=== PATIENT | female | born 1985 | race Caucasian/White ===

== ENCOUNTER 2025-03-13 09:59 | Outpatient (CLI) | payer BC, SELFPAY | END 2025-03-13 10:00 | disposition home or self-care (01) | PROVIDERS: Visit Provider Registered Nurse | DX: O09.522 Supervision of elderly multigravida, second trimester (principal); E06.3 Autoimmune thyroiditis; Z3A.23 23 weeks gestation of pregnancy | CPT/HCPCS: 84443; 86762; 86787 ==

== ENCOUNTER 2025-04-27 10:05 | Outpatient (CLI) | payer OTHER, BC, SELFPAY | END 2025-04-27 10:06 | disposition home or self-care (01) | PROVIDERS: Visit Provider Obstetrics & Gynecology | DX: Z67.91 Unspecified blood type, Rh negative (principal); O26.893 Other specified pregnancy related conditions, third trimester; E03.9 Hypothyroidism, unspecified | CPT/HCPCS: 84443; 86592; 86850; 86900; 86901; J2791 ==

== ENCOUNTER 2025-05-03 08:17 | Outpatient (CLI) | payer OTHER, BC, SELFPAY | END 2025-05-03 08:18 | disposition home or self-care (01) | LOC: NFLDREF 23:36 | PROVIDERS: Visit Provider Obstetrics & Gynecology | DX: R89.9 Unspecified abnormal finding in specimens from other organs, systems and tissues (principal); Z34.93 Encounter for supervision of normal pregnancy, unspecified, third trimester | CPT/HCPCS: 82951; 82952 ==

== ENCOUNTER 2025-06-04 11:14 | Outpatient (CLI) | payer OTHER, BC, SELFPAY ==
--- NOTE | 2025-06-04 11:30 | CRLHL7_ITS ---
For Patients: As a result of the Cures Act, medical imaging exams and procedure reports are released immediately into your electronic medical record. You may view this report before your referring provider. If you have questions, please contact your health care provider. OB ULTRASOUND FOLLOW-UP CLINICAL HISTORY: Macrosomia TECHNIQUE: Real time gaviria scale imaging of the fetus was performed. Transabdominal imaging performed. COMPARISON: 02/21/2025, 12/14/2024. FINDINGS: DAVINA by US: 07/19/2025. GA: 33 weeks 4 days. Gestation: Single. Cervix: Not visualized. Positioning: Vertex. Amniotic Fluid: 20.1 cm HENNA. 8.4 cm SDP. Placenta: Technique: TA. Placenta Position: Posterior. Dopplers: Heart Rate: 129 bpm. BIOMETRY BPD: 8.9 cm, 36 weeks 0 days. 6.0% HC: 32.4 cm, 36 weeks 5 days. 87.7% AC: 31.0 cm, 34 weeks 6 days. 86.1% FL: 6.7 cm, 34 weeks 2 days. 57.5% FL/AC Ratio: 21.48% HC/AC Ratio: 1.05. EFW: 2572 grams, 5 lb 11 oz. Age by this US: 35 weeks 3 days. DAVINA by this US: 07/06/2025. Percentile by DAVINA: 83.8% IMPRESSION: 1. Sonographic gestational age 35 weeks 3 days and sonographic due date 07/06/2025. Sonographic age is 13 days ahead of the clinical age. 2. Estimated weight 84th percentile. Abdominal circumference 86th percentile. 3. Amniotic fluid single deepest pocket 8.4 cm. HENNA 20.1 cm. Indra Veronica M.D. Diagnostic Radiologist [email or web address] Transcribed: 2:27 am DW/Dictated by: Indra Veronica MD @ 06/04/2025 12:29:00 PM (Electronically Signed)
== END 2025-06-04 11:15 | disposition home or self-care (01) ==
LOC: US 11:15
PROVIDERS: Visit Provider Obstetrics & Gynecology
DX: O36.63X0 Maternal care for excessive fetal growth, third trimester, not applicable or unspecified (principal); Z3A.33 33 weeks gestation of pregnancy
CPT/HCPCS: 76816

== ENCOUNTER 2025-06-27 10:06 | Outpatient (CLI) | payer OTHER, BC, SELFPAY | END 2025-06-27 10:07 | disposition home or self-care (01) | PROVIDERS: Visit Provider Obstetrics & Gynecology | DX: Z87.59 Personal history of other complications of pregnancy, childbirth and the puerperium (principal); Z34.93 Encounter for supervision of normal pregnancy, unspecified, third trimester | CPT/HCPCS: 82565; 82570; 84156; 84450; 84460; 84520; 87081; 87653 ==

== ENCOUNTER 2025-06-28 12:35 | Inpatient (IN) | payer OTHER, BC, SELFPAY ==
[2025-06-28] VITALS (23 sets, daily range): BP systolic 121–158; BP diastolic 74–115; PULSE 82–113; RESP 16–22; TEMP 36.7; O2SAT 98–99; BMI 35.2
[2025-06-28 11:26] LABS: Hematocrit* 36.5 % (33.0-51.0); Hemoglobin* 12.4 gm/dL (12.0-16.0); Mean Corpuscular HGB Conc 34 gm/dL (32-36); Mean Corpuscular Hemoglobin 31 pg (26-34); Mean Corpuscular Volume 90 fL (80-100); Red Blood Count* 4.04 m/uL (4.00-5.20); White Blood Count* 8.45 K/uL (4.50-11.00)
[2025-06-28 11:30] LABS: Slide Review Reflex No
[2025-06-28 11:40] LABS: Alanine Aminotransferase* 14 U/L (4-35); Aspartate Amino Transferase* 25 U/L (12-35); Blood Urea Nitrogen* 8 mg/dL (5-24); Creatinine* 0.9 mg/dL (0.5-1.5); Estimated Glomerular Filt Rate 84 ml/min
[2025-06-28 11:48] LABS: Protein Creatinine Ratio Urine 0.44 (0-0.19)
[2025-06-28 16:14] LABS: Hematocrit* 36.9 % (33.0-51.0); Hemoglobin* 12.5 gm/dL (12.0-16.0); Immature Granulocytes Abs Auto 0.17 K/uL (0.00-0.30); Immature Granulocytes Pct Auto 1.6 %; Mean Corpuscular HGB Conc 34 gm/dL (32-36); Mean Corpuscular Hemoglobin 31 pg (26-34); Mean Corpuscular Volume 90 fL (80-100); RDW Coefficient of Variation % 13.3 % (11.5-15.5); Red Blood Count* 4.08 m/uL (4.00-5.20); White Blood Count* 10.57 K/uL (4.50-11.00)
[2025-06-28 16:18] LABS: Lymphocytes Absolute Auto 1.80 K/uL (0.90-2.90); Slide Review Reflex No
[2025-06-28] MEDS: LACTATED RINGERS 1000 ML 1,000 ML 1200 ML IV (16:52)
--- NOTE | 2025-06-28 17:29 | P.LDBA_ITS ---
Subjective History of Present Illness Narrative: Patient is being admitted to Labor and Delivery for elevated blood pressure in clinic. She was sent to the center for BP monitoring. She is a 39 year old at 37.0 weeks gestation. Her full history and physical was dictated by myself on 06/28/25. Please see this for details. Patient ruled in for preeclampsia without severe features based on mild ranging blood pressures 4 hours apart with protein creatinine ratio 0.44. Recommend delivery at 37 weeks given diagnosis. Active movement. Denies LOF, vaginal bleeding or abnormal vaginal discharge. Having more frequent contractions but tolerable. Specific Issues/Plans G 2 P 1001 spouse Sohan #History of due to arrest of dilation (2 hrs pushing, no descent - 9lb 2oz baby) and gestational hypertension. - success score 46% - TOLAC packet reviewed on 03/27 - Plans for repeat without sterilization. - Likely last baby, counseled on option for sterilization # Elevated 1 hour glucola - 147mg/dL 3 hr GTT with 1 of 4 values elevated = no GDM #Advanced maternal age NIPT: Declined FAS results below #Rh negative RhoGAM 04/27/25 #Gustavo's thyroiditis. Levothyroxine 88mcg - and 176mcg Wednesday and Wednesday. Changed to 125 mcg / day on 05/22, as that is the average daily amount of the dosing above. TSH: 12/14: 1.7 TSH 03/13: 0.842 TSH 04/27: 1.930 #History of gestational hypertension during 1st . Baseline labs completed Daily low-dose aspirin #History of macrosomia. 9lb 2oz at 38 weeks. Growth ultrasound in 3rd trimester #Asthma. Not using inhaler. #Depression and anxiety. Stable without medication. #Father of baby's sister with cerebral palsy Per previous OB records: LMP 10/02/2024, exact date. DAVINA based on LMP and early ultrasound did not correlate. DAVINA 07/19/2025, which is based on early ultrasound. Labs: 03/08/2023: Blood type O negative 12/14/2024: Antibody screen negative, hemoglobin 14.7, platelets 311, RPR nonreactive, hepatitis-B antigen negative, hepatitis-B antibody positive, HIV negative, Chlamydia gonorrhea both negative, urine culture with urogenital micro Biota, hepatitis C negative, Pap smear normal, negative HPV, TSH 1.7, hemoglobin A1c 5.0, hemoglobin electrophoresis normal, creatinine 0.71, AST 14, total protein less than 4, P/C less than 0.06 Ultrasounds: Ob 1st trimester ultrasound 12/14/2024: Single intrauterine with dating perform report. Gestational age and DAVINA by LMP or Ob/E HR assignment: 10 weeks 3 days, DAVINA: 07/09/2025. Age in DAVINA by current ultrasound measurements 9 weeks 0 days, DAVINA 07/19/2025. anatomy scan 02/21/2025: Incomplete anatomy survey due to positioning. Follow-up recommended for RVOT, 3VV, 3VTV, will or spine, sacral spine, and cord insertion. Placenta is posterior. No previa. Amniotic fluid subjectively normal in volume. Ob ultrasound follow-up 03/02/2025: Single intrauterine at 20 weeks 1 day. RVOT, 3VV, 3VTV are spine, sacral spine, and cord insertion completed without abnormality detected. 06/04/25: cephalic, HENNA 20.1, SDP 8.4, EFW 83.8%, AC 86.1%, BPD 96%, HC 87.7%, FL 57.5% Covid: declined Flu:declines TDAP: - declines RSV: Mental Health: DOUGIE and PHQ = 3 on 05/22 Hgb: 12.8 at 33 4/7 GBS: H&P: Dr. Nuno on 06/20 OB - Problem Based A/P Additional Plan (1) Hx of macrosomia in infant in prior , currently : Status: Acute (2) Rh negative status during : Status: Acute (3) Advanced maternal age (AMA) in : Status: Acute (4) History of delivery: Status: Acute (5) Gustavo thyroiditis: Status: Acute (6) Asthma: Status: Acute Plan Pre-Eclampsia without SF - Based on mild ranging BP 4 hrs apart and P/C ratio of 0.44 - BPs 120-150s/70-100s - Symptoms: None - Magnesium: currently: Currently not indicated - IV antihypertensives: Currently not indicated - Pre-eclampsia labs on 06/28/25: Hgb 12.5 Plt 218 Cr 0.9 ALT 14 AST 25 Plan: - Reviewed consent form with patient. R/B/A discussed. Patient verbalized understanding and all questions answered to patient's satisfaction. - Will proceed to the the OR for repeat delivery NST: baseline 130 bpm, moderate variability, + acceleration, - decelerations. Reactive and reassuring [place]: irregular OB Exam Physical Exam Vital signs: Temp Pulse Resp BP 98.1 F 97 16 125/90 H 06/28/25 11:00 06/28/25 14:15 06/28/25 11:00 06/28/25 14:15 Narrative: Physical exam: General: No acute distress Psych: Alert and oriented x3, full affect HEENT: Normocephalic, atraumatic Lungs: Unlabored breathing Neuro: No focal deficit. Mentating appropriately Pelvic exam: closed per RN exam
[2025-06-28] MEDS: CEFAZOLIN 2 GM INJ IVP (18:39)
--- NOTE | 2025-06-28 20:32 | P.NB_ITS ---
Nerve Block Nerve Block Time Seen by Provider: 19:48 Date Seen: 06/28/25 Type of block requested by surgeon for post-operative analgesia: TAP Side: bilateral Time out performed: Yes Verification of patient name: Yes Verification of date of : Yes Name of person performing procedure: Antoine Vasu Continuous monitoring Was continuous monitoring of O2 sat, B/P, communications billing analyst, recorded every 15 minutes?: Yes Procedure Checklist: sterile prep, needles and gloves Ultrasound guided. Images saved: Yes Medications given in 5ml increments after negative aspiration: Marcaine %: 0.25 mL: 20 Needle gauge: 20 and Exparel mL: 10 Needle gauge: 20 Patient tolerated procedure well: Yes Block Charges Block Charge (with Pro Fee): TAP Bilateral Use of Ultrasound Machine for Block: Yes- US Guidance/pain block
--- NOTE | 2025-06-28 20:32 | P.ANES_ITS ---
Anesthesia Charges Start Date/Time Anesthesia Start Date: 06/28/25 Anesthesia Start Time: 18:23 Stop Date/Time Anesthesia Stop Date: 06/28/25 Anesthesia Stop Time: 20:05 Coding CPT Codes CPT Codes: ANESTH CS DELIVERY - 15155 ([id number]) P2 - PATIENT W/MILD SYST DISEASE, QZ - AUTOMOTIVE ENGINEERING TECHNICIAN SVC W/O LICENSED MIDWIFE BY
--- NOTE | 2025-06-28 20:32 | W.ANESCHARGE ---
Anesthesia Charges Start Date/Time Anesthesia Start Date: 06/28/25 Anesthesia Start Time: 18:23 Stop Date/Time Anesthesia Stop Date: 06/28/25 Anesthesia Stop Time: 20:05 Coding CPT Codes CPT Codes: ANESTH CS DELIVERY - 69250 ([id number]) P2 - PATIENT W/MILD SYST DISEASE, QZ - CONTROLLED AREA CHECKER SVC W/O SUPERINTENDENT PLANT PROTECTION BY
[2025-06-28] MEDS: LACTATED RINGERS 1000 ML 1,000 ML 125 ML IV (21:30)
--- NOTE | 2025-06-28 22:47 | PM.OBPRCCS ---
Procedure Date of procedure: 06/28/25 Procedure Done: Global Will [facility] bill your pro fee for this procedure?: Yes IV fluids (mL): 700 Urine Output (mL): 100 (Clear) Procedure Description: DELIVERY BY SECTION Date of Service: 06/28/25 Delivery time: 1855 Summary: Admitted for pre-eclampsia at 37.0 weeks, Repeat Lower uterine transverse section, Pfannenstiel, Closed with sutures, QBL 428 cc, No complications, Findings: Normal uterus, bilateral ovaries and tubes. Umbilical cord had true knot 7, 6, 8 Weight 3290 g. Primary Indication: 1. Preeclampsia without severe features at 37.0 weeks 2. History of delivery x1 3. Declined TOLAC Procedures: Repeat lower uterine transverse section Specimens Removed: Placenta Surgeon: Lalita Nuno MD Anesthesia: Spinal and TAP Report: Prophylactic antibiotic, 2 g of Ancef was given before patient was taken to OR. After arrival to the operating room patient was placed in the supine position with left lateral tilt after administration of spinal anesthesia. She was prepped and draped in the usual sterile manner. Laparotomy A pfannenstiel incision was made through the anterior abdominal wall with #10 scalpel approximately 2 cm above the pubic symphysis. The incision was extended sharply with the #10 scalpel through the subcutaneous tissue to the level of fascia. The fascia was entered sharply with a #10 scalpel (Pfannenstiel) in the midline and extended in semi-elliptical fashion with Braden scissor. The underlying muscles were dissected off the overlying fascia by grasping the superior aspect of fascia with two benedict clamps and blunt dissection was used along the midline. The fascia was further from rectus muscle with Braden scissor and/or cautery. In similar fashion, the lower aspect of fascia was also grasped with two Benedict clamps and both blunt and sharp dissection was used to separate fascia from rectus muscle. The rectus muscles were in the midline bluntly with digits. The peritoneum was then entered bluntly. The peritoneal incision was then extended superiorly and inferiorly under direct visualization with care being taken to avoid bladder and bowel. Minimal filmy adhesions noted. The peritoneal incision was enlarged bluntly by lateral traction from the surgeon's and residential living assistant's hand. Jono retractor was inserted into the abdomen. Delivery A bladder flap was note developed as bladder was low off intended hysterotomy site. A low transverse hysterotomy was made then with #10 scalpel and extended laterally and cephalad with fingers in a low transverse fashion with Manu Mott technique with care being taken to avoid injury to the fetus. The amniotic cavity (membrane) was then entered with spontaneous rupture of membrane, and the amniotic fluid was noted to be clear, fetus was delivered cephalic. With delivery of the baby, no extension was noted. Placenta was delivered spontaneously with steady traction on cord and manual separation of placenta from uterine wall. Closure Uterine cavity was cleaned after placental delivery with lap sponge x 3. The hysterotomy was closed in two layers with stitches using 0 vicryl with continuous locking stitches and 0 monocryl in a continuous non locking manner. Hemostasis was achieved as needed with electrocautery. The ovaries/tubes/uterine surface were evaluated. They were found to be normal. Jono retractor removed. Matthew applied and hemostasis was confirmed again. Peritoneal a muscles assessed. One [id number] placed at the inferior peritoneum. Hemostasis achieved with electrocautery as needed. Fascia was closed with running stitches using 0 PDS. Subcutaneous layer was irrigated. Hemostasis was checked for and found to be adequate. The subcutaneous layer was closed with running 2 0 Vicryl sutures. The skin was closed with 4-0 monocryl subcuticular sutures . The incision was cleaned, Exofin applied, and Mepilex dressing placed. The procedure considered terminate at this time. Intraoperative Complications: None QBL: 428 cc Uterotonics/hemostatic agents: 30 unit of Pitocin, 1 g of TXA Disposition: The patient tolerated the procedure well. She was recovered in Obstetric PACU for close monitoring in stable condition, with a contracted uterus and normal transvaginal bleeding. The was sent to nursery for further assessment and resuscitation with team. Patient requiring CPAP. The placenta was sent to pathology. Debrief with OR team performed and specimen reviewed at the conclusion of the procedure. total score - 1 minute: 7 total score - 5 minute: 6 total score - 10 minute: 8
[2025-06-28] MEDS: ACETAMINOPHEN 500 MG TABLET 1000 MG PO (23:05)
--- NOTE | 2025-06-28 23:20 | P.DS_ITS ---
Transfer Discharge Sum: Prov Provider Date of admission: 06/28/25 12:35 Primary care physician: Not a Local Provider Transfer Discharge Sum: Med Medications Active and Home Medications: Home Medications aspirin 81 mg chewable tablet 81 mg PO QDAY 03/13/25 [History Confirmed 06/27/25] docosahexaenoic acid 200 mg capsule ( DHA) mg PO 03/13/25 [History Confirmed 06/27/25] docusate sodium 100 mg capsule 100 mg PO BID PRN 03/13/25 [History Confirmed 06/27/25] polyethylene glycol 3350 17 gram/dose oral powder (Miralax) 4 g PO ONCE PRN 02/23 04/19 [History Confirmed 06/27/25] levothyroxine 125 mcg tablet 125 mcg PO QDAY #60 tabs 05/22/25 [Rx Confirmed 06/27/25] Active Medications Acetaminophen (Acetaminophen 500 Mg Tablet) 1,000 mg PO Q6H PRN PRN Reason: pain/fever Last Admin: 06/28/25 23:05 Dose: 1,000 mg Acetaminophen (Acetaminophen 500 Mg Tablet) 1,000 mg PO Q6H PRN PRN Reason: Pain Calcium Carbonate (Calcium Carbonate 500 Mg Chew) 1,000 - 2,000 mg PO Q2H PRN Docusate Sodium (Docusate Sodium 100 Mg Capsule) 100 mg PO DAILY [facility] Lactated Ringer's (Lactated Ringers 1000 Ml) 1,000 mls @ 125 mls/hr IV .Q8H [facility] Last Infusion: 06/28/25 18:16 Dose: Infused Oxytocin (Oxytocin 30 Unit/500 Ml In Ns) 30 unit in 500 mls @ 300 mls/hr IVPB CONT GRACIE Lactated Ringer's (Lactated Ringers 1000 Ml) 1,000 mls @ 125 mls/hr IV .Q8H [facility] Last Admin: 06/28/25 21:30 Dose: 125 mls/hr Ibuprofen (Ibuprofen 600 Mg Tablet) 600 mg PO Q6H PRN PRN Reason: Pain Ketorolac Tromethamine (Ketorolac 30 Mg/Ml Inj) 30 mg IVP Q6H [facility] Stop: 06/29/25 20:16 Lanolin (Lanolin Cream) 1 applic TOPICAL Q1H PRN Lidocaine HCl (Lidocaine 1 % Pf 30 Ml) 30 ml INJECTION ONCE PRN Lidocaine/Aluminum/Magnesium/Simeth (Mag Hydrox/Aluminum Hyd/Simeth 30 Ml Oral.Susp) 30 ml PO Q2H PRN PRN Reason: Heartburn/Gastric Distress Magnesium Hydroxide (Magnesium Hydroxide 30 Ml Oral.Susp) 30 ml PO Q6H PRN PRN Reason: Constipation Magnesium Hydroxide (Magnesium Hydroxide 30 Ml Oral.Susp) 30 ml PO Q6H PRN PRN Reason: Constipation Misoprostol (Misoprostol 800 Mcg/4 Tablet) 800 mcg [place] ONCE PRN Ondansetron HCl (Ondansetron 2 Mg/Ml Inj) 4 mg IV Q4H PRN PRN Reason: Nausea And Vomiting Ondansetron HCl (Ondansetron 2 Mg/Ml Inj) 4 mg IVP Q4H PRN PRN Reason: nausea/vomiting Oxycodone HCl (Oxycodone 5 Mg Tablet) 5 - 10 mg PO Q4H PRN PRN Reason: Pain Last Admin: 06/28/25 23:04 Dose: 5 mg Oxytocin (Oxytocin 10 Unit/Ml Inj) 10 unit IM ONCE PRN Simethicone (Simethicone 80 Mg Tab.Chew) 80 - 160 mg PO Q4H PRN PRN Reason: gas Simethicone (Simethicone 80 Mg Tab.Chew) 80 - 160 mg PO Q4H PRN PRN Reason: Gas Sodium Chloride (Sodium Chloride 0.9 % (Flush) 10 Ml Syringe) 10 ml IVF .FLUSH PRN Sodium Chloride (Sodium Chloride 0.9 % (Flush) 10 Ml Syringe) 10 ml IVF .FLUSH PRN Terbutaline Sulfate (Terbutaline 1 Mg/Ml Inj) 0.25 mg SUBCUT ONCE PRN Transfer Discharge Sum: Hosp Hospital Course Hospital course: Milady Camacho is a 39 year old female Time Spent with Patient Time attestation: Total time spent providing and/or coordinating transfer services: Exam Const: Vital Signs, click to edit/add: Vital Signs - 24 hr 06/28/25 10:52 06/28/25 11:00 06/28/25 11:07 Temperature 98.1 F Pulse Rate 98 100 Pulse Rate [Pulse Oximeter] Respiratory Rate 16 Blood Pressure 128/84 141/92 H Blood Pressure [Ri ght Arm] Pulse Oximetry 06/28/25 11:22 06/28/25 11:39 06/28/25 11:53 Temperature Pulse Rate 113 H 104 H 109 H Pulse Rate [Pulse Oximeter] Respiratory Rate Blood Pressure 121/80 135/91 H 141/95 H Blood Pressure [Ri ght Arm] Pulse Oximetry 06/28/25 12:23 06/28/25 12:28 06/28/25 12:44 Temperature Pulse Rate 94 98 100 Pulse Rate [Pulse Oximeter] Respiratory Rate Blood Pressure 158/115 H 156/100 H 148/88 H Blood Pressure [Ri ght Arm] Pulse Oximetry 06/28/25 13:00 06/28/25 13:14 06/28/25 13:30 Temperature Pulse Rate 96 94 96 Pulse Rate [Pulse Oximeter] Respiratory Rate Blood Pressure 148/96 H 136/88 132/78 Blood Pressure [Ri ght Arm] Pulse Oximetry 06/28/25 13:44 06/28/25 14:01 06/28/25 14:15 Temperature Pulse Rate 101 H 95 97 Pulse Rate [Pulse Oximeter] Respiratory Rate Blood Pressure 138/90 H 151/74 H 125/90 H Blood Pressure [Ri ght Arm] Pulse Oximetry 06/28/25 20:36 06/28/25 20:50 06/28/25 21:06 Temperature Pulse Rate Pulse Rate [Pulse Oximeter] 88 86 Respiratory Rate 22 16 16 Blood Pressure Blood Pressure [Ri ght Arm] 133/89 125/77 134/88 Pulse Oximetry 99 98 06/28/25 21:23 06/28/25 21:36 06/28/25 21:51 Temperature Pulse Rate Pulse Rate [Pulse Oximeter] 84 82 89 Respiratory Rate 16 16 16 Blood Pressure Blood Pressure [Ri ght Arm] 135/86 127/82 137/83 Pulse Oximetry 99 98 98 06/28/25 22:05 06/28/25 22:21 Temperature Pulse Rate Pulse Rate [Pulse Oximeter] 89 97 Respiratory Rate 16 16 Blood Pressure Blood Pressure [Ri ght Arm] 135/86 131/79 Pulse Oximetry 98 98 Discharge Plan Discharge Date of Admission: 06/28/25 12:35 Attending Physician on Admission: Lalita Nuno Primary Care Provider: Provider,Not a Local Discharge Medications: No Action docusate sodium 100 mg capsule 100 mg PO BID PRN aspirin 81 mg tablet,chewable 81 mg PO QDAY polyethylene glycol 3350 [Miralax] 17 gram/dose powder 4 g PO ONCE PRN DHA 200 mg capsule PO levothyroxine 125 mcg tablet 125 mcg PO QDAY Qty: 60 2RF Follow Up Appointments: Provider,Not a Local [Primary Care Provider, Family Practice]
--- NOTE | 2025-07-02 17:13 | W.PM.OBTRAN ---
History of Present Illness History of Present Illness Date Seen: 06/28/25 History of Present Illness: 39 year old G2, now P2 delivered via repeat delivery at 37.0 weeks gestation. Patient was diagnosed with preeclampsia on 06/28/2025. Delivery was recommended. She underwent an uncomplicated repeat delivery with QBL 428 cc. Findings: Normal uterus, bilateral ovaries and tubes. Umbilical cord had true knot information: 7, 6, 8. Weight 3290 g. Unfortunately, needed resuscitation the entire time of the surgery and was unable to do skin to skin. Ultimately, decision was made by team to transfer as they were unable to get her off CPAP. Patient is very distressed by this and strongly desired transfer to [place] to be with her SHELDON. Her pain is well controlled on despite being very recently postop. She has not started eating. Currently, not ready to ambulate. Bleeding is minimal. She is urinating with toro catheter and UOP adequate. Patient denies chest pain, SOB, n/v, headache, RUQ pain, vision changes, dizziness. I was able to speak to the charge nurse at [place]. Report that they do have a bed for her but will not have a nurse until 11:00 p.m. This actually coincide well as baby is not due to be transferred until 10PM. Case discussed with OBGYN internal combustion engine assembler, Dr. Sussy Bone who is accepting the transfer. Meds Home Medications and Allergies Home Medications ?Medication ?Instructions ?Recorded ?Confirmed ?Type aspirin 81 mg chewable tablet 81 mg PO QDAY 03/13/25 06/27/25 History docosahexaenoic acid 200 mg mg PO 03/13/25 06/27/25 History capsule ( DHA) docusate sodium 100 mg capsule 100 mg PO BID PRN 03/13/25 06/27/25 History polyethylene glycol 3350 17 4 g PO ONCE PRN 03/13/25 06/27/25 History gram/dose oral powder (Miralax) levothyroxine 125 mcg tablet 125 mcg PO QDAY #60 tabs 05/22/25 06/27/25 Rx Allergies Allergy/AdvReac Type Severity Reaction Status Date / Time red dye Allergy Mild Hives Verified 06/27/25 09:42 [facility] Medical History IBS (irritable bowel syndrome) ?K58.9 - Irritable bowel syndrome, unspecified (ICD-10) Tobacco use ?Z72.0 - Tobacco use (ICD-10) Anxiety ?F41.9 - Anxiety disorder, unspecified (ICD-10) Surgical History History of tonsillectomy ?Z90.89 - Acquired absence of other organs (ICD-10) [place] teeth extracted ?K08.409 - Partial loss of teeth, unspecified cause, unspecified class (ICD-10) S/P section ?Z98.891 - History of uterine scar from previous surgery (ICD-10) Family History Other Alcohol dependence Anxiety and depression Asthma Cataract Colon cancer Colon polyp Kidney disease Leukemia Lung cancer Osteoporosis Ovarian cancer PCOS (polycystic ovarian syndrome) Parkinson disease Rheumatoid arthritis Seizure disorder Skin cancer Sleep apnea Stroke Suicide attempt Thyroid disease Social History Narrative: 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 She recently moved to [place]. What is your current living situation?: I presently have a place to live Problems where you live: no known problems In the past 12 months, utilities in danger of being shut off: no In past 12 months, lack of transportation kept you from medical appts, meetings, work, or getting things needed for daily living: no In the past 12 mos, have been you worried that your food would run out before you had money to buy more?: never true In the past 12 mos, the food you bought just didn't last and you didn't have money to buy more?: never true Smoking Status: Former smoker How often does anyone, including family, friends and others, physically hurt you: never How often does anyone, including family, friends and others, insult or talk down to you: never How often does anyone, including family, friends and others, threaten you with harm: never How often does anyone, including family, friends and others, scream or curse at you: never History History 2 Elective abortions Para 1 Spontaneous abortions Hx # Term Pregnancies 1 Ectopic pregnancies Hx # Pregnancies Multiple births Number of Living Children 1 Past Pregnancies Del. Date GA/Weeks Outcome Route wt Inf Gender Labor Lgth Anesthesia Location Provider Compli 03/10/23 38 live - full term low transverse 9 lb 2.034 oz Female >20 hours epidural Delivery Date: 03/10/23 Last Updated by: Mary Jane Clark ~ MA Prolonged Labor >20 hours, Failure to progress in second stage, gHTN PP for two months OB - H&P: Exam Physical Exam Vital signs: Temp Pulse Resp BP Pulse Ox 98.1 F 97 16 131/79 98 06/28/25 11:00 06/28/25 22:21 06/28/25 22:21 06/28/25 22:21 06/28/25 22:21 Narrative: Physical exam: General: No acute distress Psych: Alert and oriented x3, full affect HEENT: Normocephalic, atraumatic Lungs: Unlabored breathing Neuro: No focal deficit. Mentating appropriately Abdomen: Soft, nontender. No rebound or guarding Incision: Dressing in place. Intact. Pelvic exam: Scant bleeding on pad Results Labs Lab Assessment Start: 06/28/25 14:58 Freq: ONCE Status: Complete Protocol: PC.OBGBS Activity Type Activity Date Activity User E-sign Co-sign Detail Recorded Client Recorded Date Recorded By Document 06/28/25 15:00 [facility] [id number] 06/28/25 15:01 [facility] 06/28/25 15:00 Lab Assessment GBS Status negative GBS Additional Criteria None No Treatment Needed OK Are Labs Available Yes Maternal Blood Type O Maternal RH Factor Negative Evaluate Maternal Rubella Immune Status Immune Hepatitis B Surface Antigen Negative Maternal HIV Status Negative Maternal Syphillis (RPR) Status Negative Labs Laboratory Tests 06/28/25 06/28/25 06/28/25 Range/Units 15:58 11:15 10:46 WBC 10.57 8.45 (4.50-11.00) K/uL RBC 4.08 4.04 (4.00-5.20) m/uL Hgb 12.5 12.4 (12.0-16.0) gm/dL Hct 36.9 36.5 (33.0-51.0) % MCV 90 90 (80-100) fL MCH 31 31 (26-34) pg MCHC 34 34 (32-36) gm/dL RDW Coeff of Krissy 13.3 (11.5-15.5) % Plt Count 218 225 (140-440) K/uL Neut % (Auto) 73.2 H (42.0-72.0) % Lymph % (Auto) 16.6 L (20-44) % [place] % (Auto) 6.9 (0.0-11.0) % Eos % (Auto) 1.6 (0.0-7.0) % Baso % (Auto) 0.1 (0.0-3.0) % Neut # (Auto) 7.70 H (1.7-7.0) K/uL Lymph # (Auto) 1.80 (0.90-2.90) K/uL [place] # (Auto) 0.70 (0.00-0.90) K/UL Eos # (Auto) 0.17 (0.00-0.50) K/uL Baso # (Auto) 0.01 (0.00-0.30) K/uL Abs Immat Gran (auto) 0.17 (0.00-0.30) K/uL Imm/Tot Granulo (auto) 1.6 % BUN 8 (5-24) mg/dL Creatinine 0.9 (0.5-1.5) mg/dL Estimated GFR 84 ml/min AST 25 (12-35) U/L ALT 14 (4-35) U/L Urine Creatinine 34.2 mg/dL Protein/Creatinin Ratio 0.44 H (0-0.19) Urine Total Protein 15 mg/dL Syphilis IgG Antibody Non-Reactive (NonReactive) Blood Type O Negative Antibody Screen POSITIVE Antibody Identification Anti-D Assessment and Plan Assessment and plan (1) Hx of macrosomia in in prior , currently : Status: Acute (2) Rh negative status during : Status: Acute (3) Advanced maternal age (AMA) in : Status: Acute (4) History of delivery: Status: Acute (5) Gustavo thyroiditis: Status: Acute (6) Asthma: Status: Acute Plan - Care to be continue at receiving facility: Routine care status post delivery and preeclampsia assessment. - VSS and wnl postoperatively - Status at time of transfer: returning to anticipated baseline
== END 2025-06-29 00:45 | disposition short-term general hospital (02) | DRG 788 ==
LOC: OB OUT 14:19 → OB 14:19
PROVIDERS: Admitting Provider Obstetrics & Gynecology; Visit Provider Obstetrics & Gynecology
PROC: 10D00Z1 Extraction of Products of Conception, Low, Open Approach (ICD-10-PCS; CPT 59514; principal; 2025-06-28 17:15)
DX: O14.04 Mild to moderate pre-eclampsia, complicating childbirth (principal); O99.284 Endocrine, nutritional and metabolic diseases complicating childbirth; E06.3 Autoimmune thyroiditis; O34.211 Maternal care for low transverse scar from previous cesarean delivery; Z3A.37 37 weeks gestation of pregnancy; G89.18 Other acute postprocedural pain; O99.52 Diseases of the respiratory system complicating childbirth; J45.909 Unspecified asthma, uncomplicated; O99.344 Other mental disorders complicating childbirth; F32.A Depression, unspecified; F41.9 Anxiety disorder, unspecified; Z37.0 Single live birth; O26.893 Other specified pregnancy related conditions, third trimester; Z67.41 Type O blood, Rh negative
CPT/HCPCS: 01961; 36415; 64488; 76942; 82565; 82570; 84156; 84450; 84460; 84520; 85018; 85025; 85027; 86780; 86850; 86870; 86900; 86901; A4314; A9270; J0665; J0666; J0690; J1100; J1885; J2371; J2405; J2590; J3010; J7120

== ENCOUNTER 2025-06-29 00:30 | Outpatient (CLI) | payer OTHER, BC, SELFPAY | END 2025-06-29 00:31 | disposition home or self-care (01) | LOC: AMB 07-03 11:44 | PROVIDERS: Visit Provider Family Medicine | DX: Z02.89 Encounter for other administrative examinations (principal) | CPT/HCPCS: A0425; A0433 ==